=== PATIENT | male | born 1960 | race Caucasian/White ===

== ENCOUNTER 2019-06-11 14:53 | Emergency (ER) | payer SELFPAY ==
[~2019-06-11] VITALS: Ht 162.6 cm; Wt 68.2 kg
[2019-06-11] MEDS ORDERED: INS7030 SQ (15:01)
[2019-06-11 15:02] VITALS: BP 138/62
[2019-06-11 15:11] LABS: GLUCOSE,POINT OF CARE 399 MG/DL (70-110)
[2019-06-11] MEDS ORDERED: OS500 PO (16:31)
[2019-06-11] MEDS ORDERED: HYDR25TA PO (16:31)
[2019-06-11] MEDS ORDERED: LORA10TA7 PO (16:31)
[2019-06-11] MEDS ORDERED: ATOR20TA86 PO (16:31)
== END 2019-06-11 16:45 | disposition home or self-care (01) ==
LOC: EMS 14:54
DX: E11.65 Type 2 diabetes mellitus with hyperglycemia (principal); F17.210 Nicotine dependence, cigarettes, uncomplicated; Z79.4 Long term (current) use of insulin; Z76.0 Encounter for issue of repeat prescription